=== PATIENT | male | born 1940 | race Caucasian/White ===

== ENCOUNTER → 2016-10-03 | Day surgery (SDC) | payer MEDICARE, OTHER ==
[~2016-10-03] MED LIST: ACETAMINOPHEN/HYDROcodone 325 MG/5 MG TAB ONE; BUPIVACAINE/EPINEPHRINE 0.25% 50 ML VIAL ONE; KETOROLAC TROMETHAMINE 30 MG/ML (IVP) VIAL IV PUSH ONE; LACTATED RINGER'S 1000 ML INJ 1,000 ML ONE; ONDANSETRON HCL 4 MG/2 ML VIAL IV PUSH ONE; PROPOFOL 200 MG/20 ML AMP IV ONE; ceFAZolin 2 GM PREMIX 50 ML ONE
--- NOTE | 2016-10-03 16:01 | TN ---
cc: BRENDON ELENA M.D. DATE OF SURGERY 10/03/2016 PREOPERATIVE DIAGNOSIS Recurrent umbilical incisional hernia, left inguinal hernia. POSTOPERATIVE DIAGNOSES Recurrent umbilical incisional hernia, left inguinal hernia. PROCEDURE 1. Open repair recurrent umbilical incisional hernia with mesh. 2. Open repair left inguinal hernia with mesh. 3. Excision spermatic cord lipoma, left. SURGEON Dr. Brendon Elena. 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 He has gradually developed an increasing size left inguinal hernia that requires operative intervention. INTRAOPERATIVE FINDINGS No evidence of mesh in the infraumbilical position encountered. Primary recurrent defect about 2.5 cm in diameter. It is primarily repaired and reinforced with onlay mesh. Left indirect inguinal hernia with large spermatic cord lipoma excised and discarded. This procedure was assisted by my nurse practitioner. The skill set of an HEALTH CLUB MANAGER was medically necessary to provide appropriate visualization of the operative larson and to facilitate efficiency and completion of the surgical procedure. tire and lube technician was at the back table providing appropriate instrumentation while the nurse practitioner directly assisting me through the entirety of the procedure. ESTIMATED BLOOD LOSS Less than 10 ml. 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 Sequential compression devices were placed on bilateral lower extremities. Following induction of adequate general anesthesia the patient's abdomen and groin were prepped and draped in usual sterile fashion with Betadine. A time-out procedure was performed. Following completion of the time-out procedure to everyone's satisfaction within the room, an infraumbilical small transverse incision was proposed with a marking pen and infiltrated with local anesthetic. Local anesthetic was placed additionally around the umbilicus. The skin incision was carried out with scalpel and hemostasis controlled with electrocautery. Through scar tissue umbilical skin was lifted off the herniated preperitoneal fat. A Prolene suture was encountered at about the 4-5 o'clock position. The anterior fascia was circumferentially cleared. The preperitoneal fat was reduced and the defect primarily approximated with multiple interrupted zero Prolene sutures. A piece of mesh customized in shape and size was placed in onlay position, held in position with separate 0 Ethilon sutures at the 3 o'clock and 9 o'clock, 6 o'clock and 12 o'clock positions and then sutures were placed at each corner of the mesh to make the mesh taut and to provide broad coverage of the primary repair. The wound was irrigated copiously with saline. There was no evidence of bleeding. The umbilicus was reformed with 2-0 Vicryl sutures and the skin approximated running 4-0 Monocryl subcuticular suture. Attention was then turned to the left inguinal hernia repair. Proposed left groin incision was made with a marking pen, infiltrated local anesthetic. The incision was carried out with scalpel and hemostasis controlled with electrocautery. Dissection continued posteriorly through Franc fascia to the level of the external oblique fascia. More local anesthetic was placed beneath the external oblique fascial fibers and there were opened in their direction using a Metzenbaum scissor. Underlying ilioinguinal and iliohypogastric nerves were identified and avoided. The spermatic cord and its structures from surrounding tissues with blunt dissection to the level of the pubic tubercle and isolated with [place] drain. Thickened and scarred cremasteric fibers were divided with electrocautery. There was an obvious large spermatic cord lipoma which was reduced from surrounding spermatic cord structures to the level of the internal inguinal ring and suture ligated space with 2-0 Vicryl suture ligature and redundant fatty tissue amputated with electrocautery. The anteromedial surface examined. There was obvious indirect inguinal hernia sac which was small but had incarcerated omentum within it. Instead of opening it to reduce the omentum, it was reduced down the inguinal canal to its appropriate position. The inguinal floor was then reinforced with a piece of Atrium ProLite mesh cut from a 3 x 6 inch piece and customized in size. Sutures were placed above and below the pubic tubercle, into Devang's ligament and the shelving edge of the inguinal ligament inferiorly and laterally into the internal oblique fascia superiorly and medially. A slit was cut into the mesh to create lateral tails through which the spermatic cord protruded. The tails were tucked beneath the external oblique fascia and sutured together with a single 0 Ethilon suture. This covered the indirect hernia contents broadly. Irrigation ensued. There was no evidence of bleeding. More local anesthetic was placed in the operative field and around the spermatic cord. The external oblique fascia was closed with running 2-0 Vicryl suture. 3-0 Vicryl was placed in Franc fascia and skin was approximated with running 4-0 Monocryl subcuticular suture. Dressings were applied with Mastisol and one-half inch brown Steri-Strips, gauze and Tegaderm at each location. The patient tolerated the procedures without apparent complication. Sponge, needle and instrument counts were correct at the end of the case. MD BALAJI Esparza/KK /3:18 PM /3:39 PM MTDRe
== END | disposition home or self-care (01) ==
LOC: ESDC 10:50
PROVIDERS: ATTEND Surgery Trauma Surgery
DX: K42.9 Umbilical hernia without obstruction or gangrene (principal); K40.90 Unilateral inguinal hernia, without obstruction or gangrene, not specified as recurrent; D17.6 Benign lipomatous neoplasm of spermatic cord
CPT/HCPCS: 00750; 00830; 49505; 49585; C1781; J0690; J1885; J2405; J3010; J7120